=== PATIENT | male | born 1995 | race Caucasian/White ===

== ENCOUNTER 2017-09-12 13:56 | Emergency (ER) | payer OTHER ==
--- NOTE | 2017-09-12 14:48 | EDM.PDOC ---
ED HPI GENERAL MEDICAL PROBLEM - General Chief Complaint: Skin Complaint Stated Complaint: RASH ON HANDS Time Seen by Provider: 09/12/17 14:30 Source of Information: Reports: Patient, Family (mother) History Limitations: Reports: No Limitations - History of Present Illness INITIAL COMMENTS - FREE TEXT/NARRATIVE: 22-year-old male presents for evaluation and treatment of a rash to the bilateral dorsal hands and wrists. Has been present for several weeks to months and is gradually worsening. Has tried different lotions with no relief. The areas pruritic and is weeping. He denies any associated fevers, chills, nausea or vomiting. He states that he does not have any other symptoms other than the rash. 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 Nor does normally wear gloves with this but is not uncommon for the water to see the gloves Location: Reports: Upper Extremity, Left, Upper Extremity, Right Bilateral Hand Pain Score (Numeric/FACES): 4 - Related Data Allergies Allergy/AdvReac Type Severity Reaction Status Date / Time Penicillins Allergy Anaphylactic Verified 09/12/17 14:16 Shock Home Meds: Home Meds Betamethasone Dipropionate 45 gm TP BID #1 cream..g. 09/12/17 [Rx] Past Medical History - Past Health History Medical/Surgical History: Denies Medical/Surgical History Social & Family History - Family History Family Medical History: Noncontributory - Tobacco Use Smoking Status *Q: Never Smoker - Caffeine Use Caffeine Use: Reports: Coffee, Energy Drinks, Soda - Recreational Drug Use Recreational Drug Use: Yes Drug Use in Last 12 Months: No Recreational Drug Type: Reports: Methamphetamine Recreational Drug Use Frequency: Daily ED ROS GENERAL - Review of Systems Review Of Systems: See Below Constitutional: Denies: Fever, Chills GI/Abdominal: Denies: Nausea, Vomiting Skin: Reports: Pruritis, Rash (bilateral dorsal hands and wrist, weeping) Neurological: Denies: Numbness, Tingling ED EXAM, SKIN/RASH Exam: See Below Exam Limited By: No Limitations General Appearance: Alert, WD/WN, No Apparent Distress Respiratory/Chest: No Respiratory Distress Cardiovascular: Normal Peripheral Pulses, Regular Rate, Rhythm Peripheral Pulses: 2+: Radial (L), Radial (R) Neurological: Alert, Oriented, Normal Cognition Psychiatric: Normal Affect, Normal Mood Skin: Warm, Dry, Normal Color, Erythema (Erythematous plaque-like lesions to the dorsal hands and dorsal wrist bilaterally weeping a clear fluid with honey- colored crust. Blanches under pressure. No blisters.) Location, Skin: Upper Extremity, Right, Upper Extremity, Left Characteristics: Macular, Erythematous Associated features: Crusting, Weeping Course - Vital Signs Last Recorded V/S: Last Vital Signs Temp 36.4 C 09/12/17 14:16 Pulse 83 09/12/17 14:16 Resp 18 09/12/17 14:16 BP 128/80 09/12/17 14:16 Pulse Ox 99 09/12/17 14:16 Departure - Departure Time of Disposition: 14:44 Disposition: Home, Self-Care 01 Condition: Good Clinical Impression: Contact dermatitis - Discharge Information Prescriptions: Betamethasone Dipropionate 45 gm TP BID #1 cream..g. Instructions: Contact Dermatitis, [id number] Referrals: PCP,None [Primary Care Provider] - Forms: ED Department Discharge Additional Instructions: Avoid use of any chemical irritants at work. Betamethasone cream twice a day until resolved. apply a layer to the dorsal hands. Recommend using a lotion such as Aquaphor, Lubriderm, etc. Use a lotion is free of dyes or perfumes. Follow-up with your primary care provider if no improvement within 2 weeks. Please return to the ER if your symptoms change or worsen.s. y
== END 2017-09-12 15:07 | disposition home or self-care (01) ==
LOC: JD.ED 13:56
DX: L25.9 Unspecified contact dermatitis, unspecified cause (principal); Z88.0 Allergy status to penicillin
CPT/HCPCS: 99283